=== PATIENT | female | born 1960 | race Hispanic/Latino ===

== ENCOUNTER 2018-03-14 16:11 | Outpatient (CLI) | payer BC ==
--- NOTE | 2018-03-14 16:50 | Mammography Report ---
RIGHT DIGITAL DIAGNOSTIC MAMMOGRAM WITH CAD: 03/14/18 16:11:00 CLINICAL: Breast cancer survivor status post left mastectomy. COMPARISON:None available. Her last mammogram was at [facility]. FINDINGS: The breast is heterogeneously dense, which may obscure small masses.Partial effacement of an upper asymmetry on an MLO spot magnification view. A corresponding asymmetry on the CC view demonstrates complete effacement. A few scattered benign calcifications. IMPRESSION: No mammographic evidence of malignancy. BI-RADS CATEGORY: 2 -- Benign RECOMMENDATION: Routine screening in one year. We will attempt to obtain a comparison mammogram from [facility] issue a revised report after comparison of the two studies. ACR BI-RADS MAMMOGRAPHIC CODES: 0 = Needs additional imaging evaluation; 1 = Negative; 2 = Benign; 3 = Probably benign; 4 = Suspicious; 5 = Malignant; 6 = Known biopsy-proven malignancy COMMENT: 1. Dense breast tissue, i.e., adenosis, fibrocystic changes, etc., may obscure an underlying neoplasm. 2. Approximately 10% of cancers are not detected with mammography. 3. A negative mammography report should not delay biopsy if a clinically suspicious mass is present. COMMENT: Patient follow-up letters are generated via our [employer]igator application.
== END 2018-03-14 16:12 | disposition home or self-care (01) ==
LOC: SPVWC 16:11
PROVIDERS: ATTEND Surgery
DX: N64.89 Other specified disorders of breast (principal); R92.8 Other abnormal and inconclusive findings on diagnostic imaging of breast; Z90.12 Acquired absence of left breast and nipple

== ENCOUNTER 2021-04-21 08:45 | Outpatient (CLI) | payer BC ==
--- NOTE | 2021-04-21 09:58 | Mammography Report ---
BILATERAL DIGITAL SCREENING MAMMOGRAM WITH CAD WITH TOMOSYNTHESIS HISTORY: Screening mammogram. Status post left breast mastectomy. TECHNIQUE: Routine digital mammographic imaging performed. This examination was interpreted with ryan chavez benefit of Computer-aided Detection analysis. Tomosynthesis images were acquired and reviewed. COMPARISON: 04/15/2020, 03/14/2018. FINDINGS: Breast Density: heterogeneously dense breast parenchymal pattern which somewhat lessens the sensitivi ty of the evaluation. Digital CC and MLO views demonstrate a focal asymmetry within the right slightly medial central breas t (best seen on the cc peter image 43). This may correspond with a finding seen slightly superiorly on the MLO view. Benign-appearing coarse round calcifications. IMPRESSION: Right slightly upper inner central breast focal asymmetry. Additional mammographic views and possibl e ultrasound is recommended. BIRADS 0-Incomplete: Needs additional imaging evaluation NOTE: WE WILL RECALL THE PATIENT FOR THIS ADDITIONAL EVALUATION. FURTHER INFORMATION: According to the [employer], yearly mammograms are recommend ed starting at age 40 and continuing as long as a woman is in good health. Clinical Breast Exams shou ld be part of a periodic health exam-about every 3 years for women in their 20s and 30s and every yea r for women 40 and over. Breast self exam is an option for women starting in their 20s. Any breast ch lupillo noted on a breast self exam should be reported promptly to the patient's healthcare provider. Br east MRI is recommended for women with an approximately 20-25% or greater lifetime risk of breast can cer, including women with a strong family history of breast or ovarian cancer and women who have been treated for Hodgkin's disease. A negative Mammography report should not discourage follow up or biopsy of a clinically significant f inding and/or abnormality. Dense breast tissue may obscure small neoplasms. The patient will be entered into a reminder system with a target due date for the next screening mamm ogram. Signer Name: Irwin Armendariz MD Signed: 04/21/2021 9:53 AM Workstation Name: [id number]
== END 2021-04-21 08:46 | disposition home or self-care (01) ==
LOC: SPVWC 08:45
PROVIDERS: ATTEND Surgery
DX: Z12.31 Encounter for screening mammogram for malignant neoplasm of breast (principal)
CPT/HCPCS: 77063

== ENCOUNTER 2021-05-21 10:51 | Outpatient (CLI) | payer BC ==
--- NOTE | 2021-05-21 13:17 | Mammography Report ---
RIGHT DIGITAL DIAGNOSTIC MAMMOGRAM WITH CAD , 05/21/2021 RIGHT LIMITED BREAST ULTRASOUND CLINICAL INFORMATION / INDICATION: R92.8 ABNORMAL MAMMO TECHNIQUE: Digital right mammographic imaging was performed. Spot compression views were obtained. Li mited ultrasound was performed. This examination was interpreted with the benefit of Computer-Aided D etection (CAD) analysis. COMPARISON: Prior mammograms including 04/21/2021, 04/15/2020 03/24/2016 and 05/29/2014 FINDINGS: Breast Density: The breasts are heterogeneously dense, which may obscure small masses. MAMMOGRAPHIC FINDINGS: No dominant mass, suspicious calcifications, or architectural distortion in th e right breast. Spot compression views showed the focal asymmetry in question to be less prominent an d grossly unchanged compared with multiple prior mammograms dating back to 2013. ULTRASOUND FINDINGS: Targeted ultrasound evaluation was performed of the area of interest. Sonograp hic evaluation of the upper inner right breast does not reveal any mass, cyst, or suspicious area of shadowing. IMPRESSION: No mammographic or sonographic evidence of malignancy. Patient may resume annual screenin g mammography. Follow up recommendation: Routine yearly BI-RADS Category 2: Benign. A "normal" or negative report should not discourage follow up or biopsy of a clinically significant f inding. A written summary of these findings will be mailed to the patient. The patient will be entered into a mammography reporting system which will generate a reminder letter for the patient's next appointmen t at the appropriate interval. According to the [employer], yearly mammograms are recommended starting at age 40 and continuing as long as a woman is in good health. Breast MRI is recommended for women with an garima roximately 20-25% or greater lifetime risk of breast cancer, including women with a strong family his tory of breast or ovarian cancer and women who have been treated for Hodgkin's disease. Signer Name: Zahra Valiente MD Signed: 05/21/2021 1:13 PM Workstation Name: [id number]
== END 2021-05-21 10:52 | disposition home or self-care (01) ==
LOC: SPVWC 10:51
PROVIDERS: ATTEND Surgery
DX: R92.8 Other abnormal and inconclusive findings on diagnostic imaging of breast (principal)